=== PATIENT | female | born 1955 | race African-American/Black ===

== ENCOUNTER 2024-06-22 21:54 | Emergency (ER) | payer OTHER ==
[~2024-06-22] VITALS: Ht 170.2 cm; Wt 87.0 kg
[~2024-06-22 21:54] MED LIST: AMOX1TAB15 MT; FERR-63 PO; FERR325T30 PO; FURO20TA4 PO; HYDR50TA39 PO; LIP40 PO; METO-396 PO; NIFE-32 PO; NIFE-72 PO; OMEP20TA23 MT; PANT40TA51 PO
[2024-06-22 22:32] VITALS: O2SAT 94
[2024-06-22] MEDS: AMOXICILLIN/POTASSIUM CLAVULANATE 875/125MG TAB PO NR (23:32)
[2024-06-23 00:42] LABS: HEMATOCRIT. 25.2 % (36.0-48.0); HEMOGLOBIN. 7.7 g/dL (12.0-16.0); MEAN CORPUSCULAR HEMOGLOBIN 23.2 pg (28.0-32.0); MEAN CORPUSCULAR HGB CONC 30.5 g/dL (31.0-37.0); MEAN CORPUSCULAR VOLUME 76.1 fL (81.0-99.0); MEAN PLATELET VOLUME 7.8 fl (7.4-10.4); PLATELET 280 x1000/uL (130-400); RED BLOOD CELL COUNT 3.31 mill/uL (4.2-5.4); RED CELL DISTRIBUTION WIDTH 23.1 % (11.6-14.6); WHITE BLOOD COUNT 16.2 x1000/uL (4.5-11.0)
[2024-06-23 00:47] LABS: CHLORIDE 104 mEq/L (98-107); POTASSIUM 3.9 mEq/L (3.5-5.1); SODIUM 137 mEq/L (136-145)
[2024-06-23 00:48] LABS: CALCIUM 8.8 mg/dL (8.7-10.4); CARBON DIOXIDE 22 mEq/L (21-32)
[2024-06-23 00:53] LABS: CREATININE 2.4 mg/dL (0.6-1.0); GLUCOSE 103 mg/dL (70-105); TROPONIN I HIGH SENSITIVITY 27 ng/L (3.0-34); UREA NITROGEN BLOOD 48 mg/dL (9-23)
[2024-06-23 01:03] LABS: DIFFERENTIAL COMMENT 1
[2024-06-23 09:24] VITALS: BP 138/67; PULSE 87; RESP 18; TEMP 36.61404; O2SAT 99
[2024-06-23 11:07] LABS: ANISOCYTOSIS 2+; PLATELET ESTIMATE NORMAL
[2024-06-23 11:08] LABS: HYPOCHROMASIA 1+; MICROCYTOSIS 1+
== END 2024-06-23 09:23 | disposition short-term general hospital (02) ==
LOC: ER 21:54 → EDBEDREQTM 06-23 08:21 → ER 06-23 09:23
DX: J18.9 Pneumonia, unspecified organism (principal); R09.02 Hypoxemia; E11.22 Type 2 diabetes mellitus with diabetic chronic kidney disease; I12.9 Hypertensive chronic kidney disease with stage 1 through stage 4 chronic kidney disease, or unspecified chronic kidney disease; N18.9 Chronic kidney disease, unspecified; Z90.49 Acquired absence of other specified parts of digestive tract; Z85.048 Personal history of other malignant neoplasm of rectum, rectosigmoid junction, and anus; Z79.899 Other long term (current) drug therapy
CPT/HCPCS: 36415; 71045; 93005; 99285; 80048; 83880; 85025; 84484; Z7610

== ENCOUNTER 2024-07-16 10:49 | Emergency (ER) | payer OTHER ==
[~2024-07-16] VITALS: Ht 167.6 cm; Wt 82.0 kg
[2024-07-16 10:53] VITALS: O2SAT 100
[2024-07-16 12:50] LABS: HEMATOCRIT. 28.1 % (36.0-48.0); HEMOGLOBIN. 8.6 g/dL (12.0-16.0); MEAN CORPUSCULAR HEMOGLOBIN 24.4 pg (28.0-32.0); MEAN CORPUSCULAR HGB CONC 30.6 g/dL (31.0-37.0); MEAN CORPUSCULAR VOLUME 79.6 fL (81.0-99.0); MEAN PLATELET VOLUME 8.3 fl (7.4-10.4); PLATELET 379 x1000/uL (130-400); RED BLOOD CELL COUNT 3.53 mill/uL (4.2-5.4); RED CELL DISTRIBUTION WIDTH 26.4 % (11.6-14.6); WHITE BLOOD COUNT 14.7 x1000/uL (4.5-11.0)
[2024-07-16 12:56] LABS: DIFFERENTIAL COMMENT 1
[2024-07-16 12:59] LABS: CHLORIDE 107 mEq/L (98-107); POTASSIUM 3.9 mEq/L (3.5-5.1); SODIUM 143 mEq/L (136-145)
[2024-07-16 13:00] LABS: CARBON DIOXIDE 23 mEq/L (21-32)
[2024-07-16 13:01] LABS: CALCIUM 8.3 mg/dL (8.7-10.4)
[2024-07-16 13:05] LABS: CREATININE 2.1 mg/dL (0.6-1.0); GLUCOSE 80 mg/dL (70-105)
[2024-07-16 13:06] LABS: UREA NITROGEN BLOOD 76 mg/dL (9-23)
[2024-07-16 13:08] LABS: TROPONIN I HIGH SENSITIVITY 16 ng/L (3.0-34)
[2024-07-16] MEDS ORDERED: SODIUM CHLORIDE 0.9% 1,000 ML IV ONE (13:15)
[2024-07-16 13:49] LABS: ANISOCYTOSIS 4+; PLATELET ESTIMATE NORMAL
[2024-07-16 13:50] LABS: HYPOCHROMASIA 1+; MICROCYTOSIS 1+; TARGET CELLS FEW
[2024-07-16 16:21] VITALS: BP 165/45; PULSE 96; RESP 18; TEMP 36.9; O2SAT 100
== END 2024-07-16 16:32 | disposition short-term general hospital (02) ==
LOC: ER 10:49 → EDBEDREQ 13:36 → EDBEDREQTM 13:36 → ER 16:32
DX: E11.22 Type 2 diabetes mellitus with diabetic chronic kidney disease (principal); I12.9 Hypertensive chronic kidney disease with stage 1 through stage 4 chronic kidney disease, or unspecified chronic kidney disease; N17.9 Acute kidney failure, unspecified; N18.9 Chronic kidney disease, unspecified; I10 Essential (primary) hypertension; F41.9 Anxiety disorder, unspecified; Z79.899 Other long term (current) drug therapy
CPT/HCPCS: 80048; 83880; 85025; 84484; 36415; 71045; 93005; 99285; J7030; Z7610